=== PATIENT | male | born 1970 ===

== ENCOUNTER 2018-01-18 08:48 | Emergency (ER) | payer BC, OTHER ==
[2018-01-18 10:15] VITALS: BP 141/81
--- NOTE | 2018-01-18 10:16 | UC ---
UC General HPI - HPI Summary HPI Summary: 48 yo gentleman c/o awakening this am with dizziness (spinning sensation), if moves too fast feels like the floor is moving. Feels like R ear is clogged. Hx of cerumen impaction several times. Yesterday used otc debrox and bulb syringe - cerumen extruded, however today feels worse. No fever. No cough. No sob. + n/v with dizziness this am. No abd discomfort (execpt with n/v). No recent illness. - History of Current Complaint Chief Complaint: UCGeneralIllness Stated Complaint: RIGHT EAR PAIN,VOMITING Time Seen by Provider: 01/18/18 09:59 Hx Obtained From: Patient Pain Intensity: 0 - Allergy/Home Medications Allergies/Adverse Reactions: Allergies Allergy/AdvReac Type Severity Reaction Status Date / Time Penicillins Allergy Unknown Verified 01/18/18 10:09 Reaction Details Home Medications: Home Medications NK [No Home Medications Reported] 01/18/18 [History Confirmed 01/18/18] PMH/Surg Hx/FS Hx/Imm Hx Previously Healthy: Yes - Surgical History Surgical History: None - Social History Alcohol Use: None Substance Use Type: None Smoking Status (MU): Never Smoked Tobacco Review of Systems Constitutional: Negative Skin: Negative Eyes: Negative ENT: Other - see hpi Respiratory: Negative Cardiovascular: Negative Gastrointestinal: Vomiting Genitourinary: Negative Motor: Negative Neurovascular: Other - see hpi Musculoskeletal: Negative Neurological: Negative Psychological: Negative Is Patient Immunocompromised?: No All Other Systems Reviewed And Are Negative: Yes Physical Exam Triage Information Reviewed: Yes Appearance: Well-Nourished - sitting up. looks a little uncomfortable. NAD. Nontosxic Vital Signs: Initial Vital Signs Temp 98.0 F 01/18/18 10:07 Pulse 77 01/18/18 10:07 Resp 18 01/18/18 10:07 BP 141/81 01/18/18 10:07 Pulse Ox 99 01/18/18 10:07 Vital Signs Reviewed: Yes Eye Exam: Normal - no nystagmus appreciated. Fundi (direct, non-dilated) grossly benign. PERRLA. EOMI. Double vision at about 12inches interrogation. ENT: Positive: Other - post pharynx - mild erythema, no sores. c/w recent n/v. R EAC - erythematous, mild serous drainage. TM ray, RTX'd. L EAC - not appreciable d/t cerumen impaction Dental Exam: Normal - no teeth complaints Neck exam: Normal Neck: Positive: Supple Respiratory Exam: Normal Respiratory: Positive: Chest non-tender, Lungs clear, Normal breath sounds, No respiratory distress, No accessory muscle use Cardiovascular Exam: Normal Cardiovascular: Positive: RRR, No Murmur, Pulses Normal - HR correlates with R radial pulse, Brisk Capillary Refill Abdominal Exam: Normal Abdomen Description: Positive: Nontender Musculoskeletal Exam: Normal - gait slow, steady. moves x 4 ext's. Musculoskeletal: Positive: Strength Intact Neurological Exam: Other - Facial expressions symmetric. + dizziness per hpi. O/w remaining CN's intact. Remainder neuro grossly intact Psychological Exam: Normal - conversing easily and appropriately Skin Exam: Normal - no visible or reported rash Course/Dx - Course Course Of Treatment: Zofran odt 4mg here x 1. Cerumen flush left ear. Wants to see how he feels (if better) s/p cerumen flush. Re-evaluation 11:20 - LEAC clear. TM ray, intact. Feels a little better, not back to normal. D/w pt coa / tx plan. Does not want diazepam script. Will taked the rest (prednisone, meclizine, ear gtt). F/u PCP - will call for appt on Sat or (today is Sat) . Advised to go to the ED for worse or new problems in the meantime. Questions as posed answered to the best of my ability. [id number] D/w Mr. Curtis coa / tx plan. Questions as posed answered to the best of my ability. Antihist. Predn. Diazepam. F/u PCP. May need ENT referral per PCP if sx persist or become recurrent. - Differential Dx - Multi-Symptom Provider Diagnoses: Acute vertigo. L cerumen impaction Discharge - Discharge Plan Condition: Stable Disposition: HOME Patient Education Materials: Vertigo (ED), Cerumen Impaction (ED) Referrals: Non Staff,Doctor [Primary Care Provider] - Additional Instructions: Follow up with your primary care physician, Dr. Garcia, call Saturday for appointment on Saturday or Saturday. Please go to the Emergency Department for worse or new problems in the meantime.
[2018-01-18] MEDS ORDERED: Ondansetron ODT TAB* 4 MG PO ONE (10:30)
== END 2018-01-18 11:38 | disposition home or self-care (01) ==
LOC: UCCORT 08:48
DX: R42 Dizziness and giddiness (principal); H61.22 Impacted cerumen, left ear; Z88.0 Allergy status to penicillin
CPT/HCPCS: 99203; A9270-GY; G0463